=== PATIENT | female | born 1990 | race Caucasian/White ===

== ENCOUNTER 2021-02-13 19:15 | Emergency (ER) | payer SELFPAY ==
[~2021-02-13] VITALS: Ht 162.6 cm; Wt 77.1 kg
[2021-02-13] MEDS ORDERED: ACETAMINOPHEN500 MG PO (19:51)
[2021-02-13] MEDS ORDERED: IBUPROFEN IB200 MG PO (19:51)
== END 2021-02-13 20:40 | disposition home or self-care (01) ==
LOC: FSED 19:30
DX: S00.83XA Contusion of other part of head, initial encounter (principal); W22.8XXA Striking against or struck by other objects, initial encounter; Y92.008 Other place in unspecified non-institutional (private) residence as the place of occurrence of the external cause
CPT/HCPCS: 99282

== ENCOUNTER 2021-03-03 20:19 | Emergency (ER) | payer OTHER ==
[~2021-03-03] VITALS: Ht 160 cm; Wt 77.1 kg
[~2021-03-03 20:19] MED LIST: ACETAMINOPHEN500 MG PO; IBUPROFEN IB200 MG PO
[2021-03-03] MEDS ORDERED: HYDROCODONE/APAP 5MG-325MG TAB PO ONE (20:45)
[2021-03-03] MEDS ORDERED: HYDROCODONE/APAP 5MG-325MG TAB ONE (21:40)
[2021-03-03] MEDS ORDERED: ACETAMINOPHEN 325 MG TAB PO PRN (21:45)
[2021-03-03 21:52] VITALS: BP 143/77
== END 2021-03-03 21:52 | disposition home or self-care (01) ==
LOC: FSED 20:46
DX: S90.122A Contusion of left lesser toe(s) without damage to nail, initial encounter (principal); W20.8XXA Other cause of strike by thrown, projected or falling object, initial encounter; Y92.512 Supermarket, store or market as the place of occurrence of the external cause
CPT/HCPCS: 99283

== ENCOUNTER 2023-04-25 17:29 | Emergency (ER) | payer OTHER ==
[~2023-04-25] VITALS: Ht 160 cm; Wt 77.6 kg
[2023-04-25] MEDS ORDERED: ACETAMINOPHEN 325 MG TAB PO ONE (18:15)
[2023-04-25] MEDS ORDERED: LEVOTHYROXINE75 MCG PO (18:15)
[2023-04-25] MEDS ORDERED: IBUPROFEN600 MG PO (19:49)
[2023-04-25 22:09] VITALS: BP 131/74; PULSE 90; RESP 18; TEMP 97.3; O2SAT 100
== END 2023-04-25 19:50 | disposition home or self-care (01) ==
LOC: FSED 17:33
DX: S43.401A Unspecified sprain of right shoulder joint, initial encounter (principal); S40.011A Contusion of right shoulder, initial encounter; W01.0XXA Fall on same level from slipping, tripping and stumbling without subsequent striking against object, initial encounter; Y93.01 Activity, walking, marching and hiking; Y92.89 Other specified places as the place of occurrence of the external cause; E03.9 Hypothyroidism, unspecified
CPT/HCPCS: 99283

== ENCOUNTER 2024-06-02 22:46 | Emergency (ER) | payer SELFPAY ==
[~2024-06-02] VITALS: Ht 162.6 cm; Wt 70.3 kg
[~2024-06-02 22:46] MED LIST changes: +AMOXICILLI400 MG/5 M PO; +BACTRIM DS TAB1 EACH PO; +IBUPROFEN600 MG PO; +LEVOTHYROXINE75 MCG PO; +MACROBID 100 M100 MG PO; +ONDANSETRON ODT4 MG PO; +PROPRANOLOL HCL10 MG PO; +VALTREX1000 MG PO
[2024-06-02 22:50] VITALS: PULSE 120; RESP 18; TEMP 97.6
[2024-06-02] MEDS ORDERED: AMOXICILLIN500 MG PO (23:09)
[2024-06-02 23:15] VITALS: BP 125/62; PULSE 120; RESP 15; TEMP 97.6; O2SAT 100
== END 2024-06-02 23:18 | disposition home or self-care (01) ==
LOC: FSED 23:00
DX: H66.92 Otitis media, unspecified, left ear (principal); E03.9 Hypothyroidism, unspecified
CPT/HCPCS: 99283

== ENCOUNTER 2024-06-27 18:19 | Emergency (ER) | payer SELFPAY ==
[~2024-06-27] VITALS: Ht 160 cm; Wt 75.9 kg
[~2024-06-27 18:19] MED LIST changes: +AMOXICILLIN500 MG PO
[2024-06-27] MEDS ORDERED: METOPROLOL TART25 MG PO (19:03)
[2024-06-27] MEDS: ALBUTEROL/IPRATROPIUM 3 ML NEB NEB ONE (19:28)
[2024-06-27 19:56] VITALS: PULSE 103; RESP 16; TEMP 97.8
[2024-06-27] MEDS: IBUPROFEN 600 MG TAB PO STA (20:10)
[2024-06-27] MEDS: AMOXICILLIN/CLAVULANATE K 875 MG TAB PO STA (20:10)
[2024-06-27] MEDS ORDERED: VENTOLIN HFA18 GM INH (20:26)
[2024-06-27] MEDS ORDERED: ALBUTEROL2.5 MG/3 M INH (20:28)
[2024-06-27] MEDS ORDERED: PREDNISONE20 MG PO (20:29)
[2024-06-27] MEDS ORDERED: FLONASE ALLERG9.9 ML INH (20:30)
[2024-06-27] MEDS: PREDNISONE 20 MG TAB PO ONE (20:30)
[2024-06-27] MEDS ORDERED: AMOXICILLIN500 MG PO (20:31)
[2024-06-27 21:00] VITALS: BP 120/72; PULSE 103; RESP 16; TEMP 97.8; O2SAT 100
== END 2024-06-27 20:45 | disposition home or self-care (01) ==
LOC: FSED 18:44
DX: R05.9 Cough, unspecified (principal); J06.9 Acute upper respiratory infection, unspecified; J98.01 Acute bronchospasm; H69.83 Other specified disorders of Eustachian tube, bilateral; Z20.89 Contact with and (suspected) exposure to other communicable diseases; Z11.52 Encounter for screening for COVID-19
CPT/HCPCS: 0223U; 83518; 87400; 99284; J7512